=== PATIENT | male | born 1945 | race Caucasian/White ===

== ENCOUNTER → 2017-10-09 07:41 | Outpatient (CLI) | payer MEDICARE, OTHER, SELFPAY ==
--- NOTE | 2017-10-09 | DI.MRI.S_ITS ---
PROCEDURE: MR LUMBAR SPINE WO CON INDICATIONS: SPINAL STENOSIS TECHNIQUE: Noncontrast sagittal T1 spin echo and T2 fast echo, sagittal STIR, axial T1 and T2 fast spin echo through the lumbar spine. In cases with scoliosis, additional coronal T2 fast spin echo may be performed. COMPARISON: [facility], , L-SPINE WITHOUT CONTRAST, 01/31/2016, 13:29. FINDINGS: Image quality: Excellent. Alignment and Curvature: No plain films are available for comparison, for numbering purposes. Thus, for the purposes of this examination, 5 lumbar type vertebral bodies will be presumed, as denoted on the montage panel. This should be confirmed and correlated with plain films, prior to any lumbar spinal intervention.there is loss of normal lumbar lordosis. There is mild grade 1 retrolisthesis L3 on L4, L4-L5, and L5 on S1. Bone Marrow: Marrow is of normal overall signal. No acute vertebral body compression fractures. There is mild reactive signal within the endplates adjacent to the L1-L2, L2-L3, L3-L4, L4-L5 intervertebral discs. Moderate reactive signal adjacent to the L5-S1 intervertebral disc. Spinal Cord: Conus medullaris terminates at the L1-L2 disc space level. Visualized cord demonstrates normal signal and size. Paraspinous Soft Tissues: No paravertebral masses. L1-L2: Disc height loss and desiccation, as well as diffuse disc bulge. Bilateral facet hypertrophy. Mild canal stenosis. Mild foraminal stenosis bilaterally. No change. L2-L3: Disc desiccation, as well as diffuse disc bulge. chest tube right. Bilateral facet and ligament flavum hypertrophy. Mild canal stenosis. Mild foraminal stenosis bilaterally. No change. L3-L4: Disc height loss and desiccation, as well as diffuse disc bulge. bilateral facet and ligamentum flavum hypertrophy. Epidural lipomatosis. Increased, mild canal stenosis. No change in mild foraminal stenosis bilaterally. L4-L5: Disc desiccation and diffuse disc bulge, with new superimposed right paracentral disc extrusion, which extends inferiorly within the right anterior epidural space. Bilateral facet and ligamentum flavum hypertrophy. No change in moderate canal stenosis. No change in mild foraminal stenosis bilaterally. New impingement upon the right L5 nerve root within the lateral recess. L5-S1: Disc height loss and desiccation, as well as diffuse disc bulge/osteophyte bilateral facet and ligamentum flavum hypertrophy. Mild canal stenosis. Severe right and moderate left foraminal stenosis is unchanged. Flattening deformity right L5 nerve root within the neural foramen is unchanged. IMPRESSION: 1. New right L4-L5 disc extrusion, causing right L5 nerve root impingement. 2. No change in severe right L5-S1 foraminal stenosis secondary to disc and facet disease, causing mild flattening deformity of the right L5 nerve root within the neural foramen. 3. Recommend correlation with clinical symptoms to ascertain relevance of this finding. 4. 5 lumbar type vertebral bodies were presumed for the current report. Plain films of the lumbar spine are recommended for confirmation, prior to any lumbar spinal intervention. Dictated by: Damaso Tee M.D. on 10/09/2017 at 9:55 Approved by: Damaso Tee M.D. on 10/09/2017 at 9:59
== END ==
PROVIDERS: PCP Family Medicine; Visit Provider Psychiatry & Neurology Neurology
DX: M48.061 Spinal stenosis, lumbar region without neurogenic claudication (principal); M51.26 Other intervertebral disc displacement, lumbar region
CPT/HCPCS: 72148

== ENCOUNTER → 2019-01-11 08:49 | Outpatient (CLI) | payer MEDICARE, OTHER, SELFPAY ==
[2019-01-11 09:37] LABS: Add Manual Diff / Slide Review NO; Basophils Absolute Auto 100 /uL (0-100); Basophils Percent Auto 2.8 % (0-2); Eosinophils Absolute Auto 200 /uL (0-450); Eosinophils Percent Auto 4.5 % (2-4); Hematocrit 43.3 % (41-53); Hemoglobin 14.7 g/dL (13.5-17.5); Lymphocytes Absolute Auto 1600 /uL (1100-4500); Lymphocytes Percent Auto 30.4 % (25-40); Mean Corpuscular HGB Conc 33.9 % (30-36); Mean Corpuscular Volume 94.4 fL (80-100); Monocytes Absolute Auto 700 /uL (0-900); Monocytes Percent Auto 13.3 % (3-14); Neutrophils Absolute Auto 2600 /uL (1500-7000); Platelet Count 234 X10^3/uL (150-400); Red Blood Cell Count 4.59 X10^6/uL (4.5-5.9); Red Cell Distribution Width 13.9 % (11.6-14.8); White Blood Cell Count 5.2 X10^3/uL (4.5-11.0)
[2019-01-11 10:02] LABS: Alanine Aminotransferase 36 IU/L (21-72); Albumin 4.4 g/dL (3.5-5.0); Albumin Globulin Ratio 1.8 (1.0-2.8); Alkaline Phosphatase 67 U/L (38-126); Aspartate Aminotransferase 42 IU/L (17-59); BUN Creatinine Ratio 12.2 (6-22); Bilirubin Total 0.9 mg/dL (0.2-1.3); Blood Urea Nitrogen 11 mg/dL (9-20); Calcium 9.9 mg/dL (8.4-10.2); Carbon Dioxide 29 mmol/L (22-32); Chloride 101 mmol/L (98-107); Cholesterol 209 mg/dL (140-199); Estimated Glomerular Filt Rate > 60.0 mL/min (>60); Globulin 2.5 g/dL (1.7-4.1); Glucose 109 mg/dL (80-110); HDL Cholesterol 95 mg/dL (40-60); HEMOLYSIS < 15 (0-50); LDL Cholesterol Calculated 100 mg/dL (<100); Potassium 4.2 mmol/L (3.4-5.1); Sodium 139 mmol/L (137-145); Total Protein 6.9 g/dL (6.3-8.2); Triglycerides 68 mg/dL (35-150)
[2019-01-11 10:24] LABS: Thyroid Stimulating Hormone 4.24 uIU/mL (0.47-4.68)
[2019-01-11 10:28] LABS: Prostate Specific Antigen Scrn 1.37 ng/mL (0.1-4.0)
== END ==
PROVIDERS: PCP Family Medicine; Visit Provider Family Medicine
DX: E78.2 Mixed hyperlipidemia (principal); N40.0 Benign prostatic hyperplasia without lower urinary tract symptoms
CPT/HCPCS: 36415; 80053; 80061; 84153; 84443; 85025; G0103

== ENCOUNTER → 2020-02-01 07:38 | Outpatient (CLI) | payer MEDICARE, OTHER, SELFPAY ==
[2020-02-01 09:08] LABS: HEMOLYSIS < 15 (0-50)
[2020-02-01 09:10] LABS: Add Manual Diff / Slide Review NO; Basophils Absolute Auto 100 /uL (0-100); Basophils Percent Auto 2.3 % (0-2); Eosinophils Absolute Auto 200 /uL (0-450); Eosinophils Percent Auto 5.7 % (2-4); Hematocrit 44.2 % (41-53); Hemoglobin 14.9 g/dL (13.5-17.5); Lymphocytes Absolute Auto 1500 /uL (1100-4500); Lymphocytes Percent Auto 35.5 % (25-40); Mean Corpuscular HGB Conc 33.7 % (30-36); Mean Corpuscular Volume 94.9 fL (80-100); Monocytes Absolute Auto 600 /uL (0-900); Monocytes Percent Auto 12.9 % (3-14); Neutrophils Absolute Auto 1900 /uL (1500-7000); Neutrophils Percent Auto 43.6 % (50-75); Platelet Count 234 X10^3/uL (150-400); Red Blood Cell Count 4.66 X10^6/uL (4.5-5.9); Red Cell Distribution Width 13.4 % (11.6-14.8); White Blood Cell Count 4.3 X10^3/uL (4.5-11.0)
[2020-02-01 09:20] LABS: Alanine Aminotransferase 25 IU/L (<50); Albumin 4.1 g/dL (3.5-5.0); Albumin Globulin Ratio 1.7 (1.0-2.8); Alkaline Phosphatase 75 U/L (38-126); Aspartate Aminotransferase 35 IU/L (17-59); BUN Creatinine Ratio 13.8 (6-22); Bilirubin Total 0.4 mg/dL (0.2-1.3); Blood Urea Nitrogen 12 mg/dL (9-20); Calcium 9.6 mg/dL (8.4-10.2); Carbon Dioxide 31 mmol/L (22-32); Chloride 102 mmol/L (98-107); Cholesterol 192 mg/dL (140-199); Estimated Glomerular Filt Rate > 60.0 mL/min (>60); Globulin 2.4 g/dL (1.7-4.1); Glucose 106 mg/dL (80-110); HDL Cholesterol 90 mg/dL (40-60); LDL Cholesterol Calculated 87 mg/dL (<100); Potassium 4.6 mmol/L (3.4-5.1); Sodium 139 mmol/L (137-145); Total Protein 6.5 g/dL (6.3-8.2); Triglycerides 74 mg/dL (35-150)
== END ==
PROVIDERS: PCP Family Medicine; Referring Provider Family Medicine; Visit Provider Family Medicine
DX: E78.2 Mixed hyperlipidemia (principal)
CPT/HCPCS: 36415; 80053; 80061; 84153; 85025

== ENCOUNTER → 2020-02-07 13:24 | Outpatient (CLI) | payer MEDICARE, OTHER, SELFPAY ==
[2020-02-09 08:38] LABS: COVID19 Sendout Not Detected (Not Detect)
== END ==
PROVIDERS: PCP Family Medicine; Visit Provider Physician Assistant
DX: Z11.59 Encounter for screening for other viral diseases (principal)
CPT/HCPCS: 87635

== ENCOUNTER → 2020-02-10 13:32 | Outpatient (CLI) | payer MEDICARE, OTHER, SELFPAY | PROVIDERS: PCP Family Medicine; Referring Provider Family Medicine; Visit Provider Family Medicine | DX: R06.00 Dyspnea, unspecified (principal); Z53.8 Procedure and treatment not carried out for other reasons ==

== ENCOUNTER → 2020-02-13 13:01 | Outpatient (CLI) | payer MEDICARE, OTHER, SELFPAY ==
[2020-02-13 13:35] LABS: COVID19 -Nasal RAPID Negative (Negative)
== END ==
PROVIDERS: PCP Family Medicine; Visit Provider Physician Assistant
DX: Z11.59 Encounter for screening for other viral diseases (principal)
CPT/HCPCS: 87635

== ENCOUNTER → 2020-02-13 13:32 | Outpatient (CLI) | payer MEDICARE, OTHER, SELFPAY ==
--- NOTE | 2020-02-13 14:22 | PM.TREADMILL ---
Cardiac Stress Test Report Referral & Results Date Patient Seen: 02/13/20 Requesting provider: Judah Vásquez Indication: Chest symptoms Rest ECG: Unremarkable Procedure Note: Today following both written and verbal informed consent, the patient was exercised according to a standard [facility] protocol. The patient exercised for a total of 9 minutes 2 seconds achieving a maximum heart rate of 154. Patient's maximum systolic blood pressure was 160. This was an estimated 10.1 MET's. Exercise was terminated because targets were met and patient clearly gone beyond the average for his age No ST-T segment changes identified Occasional to rare PVCs Function aerobic impairment rated-30% on the active scale or 130% of normal Impression: No evidence of ischemia. Patient does have symptoms that are suggestive of SVT/atrial tachycardia at times. Depending on clinical indications suggest accounts payable lead of 7 or 14 day duration. Please note: Actual ECG tracings can be found in the PACS system.
== END ==
PROVIDERS: PCP Family Medicine; Referring Provider Family Medicine; Visit Provider Family Medicine
DX: R06.00 Dyspnea, unspecified (principal); R09.89 Other specified symptoms and signs involving the circulatory and respiratory systems
CPT/HCPCS: 93016; 93017; 93018

== ENCOUNTER 2023-11-07 18:13 | Emergency (ER) | payer MEDICARE, SELFPAY ==
[2023-11-07 18:31] VITALS: BP 144/70; PULSE 66; RESP 18; TEMP 36.3; O2SAT 97; BMI 21.7
--- NOTE | 2023-11-08 02:35 | ED.FALL ---
HPI - Fall General Chief Complaint: Fall Stated Complaint: GLF, Back Pain Source: patient Mode of arrival: Ambulatory History of Present Illness HPI Narrative: Patient left without seeing provider Related Data Home Medications Medication Instructions Recorded Confirmed aspirin 325 mg tablet 325 mg PO DAILY PRN 01/12/19 01/17/20 Previous Rx's Medication Instructions Recorded tadalafil 5 mg tablet 5 mg PO DAILY #90 tabs 01/25/20 tamsulosin 0.4 mg capsule (Flomax) 0.4 mg PO DAILY #90 caps 01/25/20 Allergies Allergy/AdvReac Type Severity Reaction Status Date / Time No Known Drug Allergies Allergy Verified 11/07/23 18:31 Patient History Medical History (Updated 11/07/23 @ 19:27 by Cristal Oliva RN) Vision disorder Fungal infection of foot Surgical History (Updated 01/06/18 @ 07:55 by Erin Vasquez) Anesthesia History of Achilles tendon repair Fracture Status post arthroscopy Family History (Updated 01/06/18 @ 07:55 by Erin Vasquez) Father Heart disease Mental health problem Parkinson's disease CPAP (continuous positive airway pressure) dependence Mother Diabetes mellitus Heart disease Social History Smoking Status: Never smoker Smoking Status: Never smoker alcohol intake frequency: 0-2 drinks per day Substance Use Type: does not use Exam Initial Vital Signs Initial Vital Signs: Vital Signs Temperature 97.4 F L 11/07/23 18:31 Pulse Rate 66 11/07/23 18:31 Respiratory Rate 18 11/07/23 18:31 Blood Pressure 144/70 H 11/07/23 18:31 Pulse Oximetry 97 11/07/23 18:31 Oxygen Delivery Method Room Air 11/07/23 18:31 Discharge Plan Departure Patient Disposition: Left Without Being Seen Clinical Impression: Patient left without being seen Prescriptions: No Action tadalafil 5 mg tablet 5 mg PO DAILY Qty: 90 3RF Rx Instructions: Take one tablet by mouth once a day tamsulosin [Flomax] 0.4 mg capsule 0.4 mg PO DAILY Qty: 90 3RF aspirin 325 mg tablet 325 mg PO DAILY PRN
== END 2023-11-07 19:27 | disposition left against medical advice (07) ==
PROVIDERS: Emergency Provider Emergency Medicine; PCP Family Medicine
CPT/HCPCS: 99281

== ENCOUNTER → 2023-11-09 16:52 | Outpatient (CLI) | payer MEDICARE, SELFPAY ==
--- NOTE | 2023-11-09 16:54 | DI.RAD.S_ITS ---
PROCEDURE: XR RIBS RT 2V INDICATIONS: R RIB PAIN TECHNIQUE: 2 views of the ribs were acquired. COMPARISON: [facility], RG, XR CXR 2V, 02/05/2016, 11:02. FINDINGS: Surgical changes and devices: None. Bones and chest wall: Right 7-10th rib fractures. 8th and 9th rib fractures are mildly displaced. No segmental rib fractures identified. No dislocations. No suspicious bony lesions. Right subcutaneous emphysema. Lungs and pleura: Streaky opacity at the right lung base. Probable trace hemothorax. No pneumothorax is identified. IMPRESSION: Right 7-10th rib fractures. Right 8th and 9th rib fractures are mildly displaced. No obvious pneumothorax. However, there is right chest wall subcutaneous emphysema and a probable trace hemothorax. Consider CT chest further evaluation. Dictated by: Neri Baxter M.D. on 11/09/2023 at 21:58 Approved by: Neri Baxter M.D. on 11/09/2023 at 22:14
== END ==
PROVIDERS: PCP Family Medicine; Referring Provider Family Medicine; Visit Provider Family Medicine
DX: S22.41XA Multiple fractures of ribs, right side, initial encounter for closed fracture (principal); T79.7XXA Traumatic subcutaneous emphysema, initial encounter; R07.81 Pleurodynia
CPT/HCPCS: 71100

== ENCOUNTER → 2025-01-14 07:31 | Outpatient (CLI) | payer MEDICARE, OTHER, SELFPAY ==
--- NOTE | 2025-01-14 07:33 | DI.MRI.S_ITS ---
PROCEDURE: MR HIP LT WO CON INDICATIONS: PAIN TECHNIQUE: Noncontrast coronal T1 spin echo and STIR through the bony pelvis. Coronal and axial T2 fast spin echo with fat saturation, sagittal T1 spin echo, and oblique axial T2 fast spin echo with fat saturation through the hip. COMPARISON: [facility], CR, XR PELVIS WITH LATERAL HIP LEFT, 12/15/2024, 12:01. FINDINGS: Image quality: Excellent. Bones and joints: Multilevel fibrovascular end plate change at the visualized lower lumbar spine. The sacrum is intact. Bilateral sacroiliac joints are unremarkable. The right hip is well aligned. No acute fracture or dislocation of the right hip. Small right hip effusion. Mild subchondral fracture of the superior left femoral head, with moderate subchondral marrow edema and mild articular surface collapse. Moderate left hip effusion. No dislocation of the left hip. Tendons and ligaments: The left iliopsoas, adductor, and hamstring tendons are unremarkable. The left gluteal minimus and medius tendon unremarkable. Labrum and cartilage: Circumferential labral tear. 5 mm paralabral cyst about the anterior superior labrum. Mild chondrosis of the left hip. Soft tissues: Multiple nodules in the prostate are noted. IMPRESSION: 1. Mild subchondral fracture of the superior left femoral head, with moderate marrow edema and mild articular surface collapse. Moderate left hip effusion. Mild chondrosis of the left hip. 2. Circumferential labral tear of the left hip with small paralabral cyst. Dictated by: Marla Avendaño M.D. on 01/16/2025 at 10:38 Approved by: Marla Avendaño M.D. on 01/16/2025 at 10:47
== END ==
PROVIDERS: PCP Family Medicine; Referring Provider Family Medicine; Visit Provider Family Medicine
DX: S72.092A Other fracture of head and neck of left femur, initial encounter for closed fracture (principal); S73.192A Other sprain of left hip, initial encounter; M24.852 Other specific joint derangements of left hip, not elsewhere classified; M25.552 Pain in left hip; M94.252 Chondromalacia, left hip; M25.452 Effusion, left hip
CPT/HCPCS: 73721